=== PATIENT | male | born 1975 ===

== ENCOUNTER 2018-01-12 18:32 | Inpatient (IN) ==
[2018-01-12 20:02] LABS: Basophils % 0.3 % (0.0-0.8); Eosinophils % 0.1 % (0.00-10.9); Hematocrit 43.2 VOL% (42.0-52.0); Hemoglobin 14.9 GM/DL (14.0-18.0); Immature Granulocytes % 0.9 %; Lymphocytes # 1.4 10*3/uL (1.4-4.0); Lymphocytes % 12.3 % (21.2-54.2); Mean Corpuscular HGB Conc 34.5 GM/DL (32-36); Mean Corpuscular Hemoglobin 32 PG (27-34); Mean Corpuscular Volume 91.5 FL (87-102); Mean Platelet Volume 9.5 FL (9.6-12.0); Monocytes # 1.4 10*3/uL (0.11-0.8); Monocytes % 12.6 % (1.7-12.7); Neutrophils # 8.1 10*3/uL (1.4-7.4); Neutrophils % 73.8 % (38.7-73.9); Platelet Count 137 T/CUMM (130-400); Red Blood Count 4.72 MC/CUMM (3.8-5.5); Red Cell Distribution Width 12.4 % (9.3-17.3)
[2018-01-12 20:12] LABS: INR 1.1
[2018-01-12 20:15] LABS: Barbiturates Screen,Urine Negative (Negative); Benzodiazepines Screen,Urine Negative (Negative); Cannabinoid Screen,Urine Negative (Negative); Opiate Screen,Urine Negative (Negative); Phencyclidine Screen,Urine Negative (Negative)
[2018-01-12 20:18] LABS: Apearance,Urine CLEAR (Clear); Bilirubin,Urine Negative (Negative); Blood, Urine Moderate mg/dL (Negative); Glucose,Urine (UA) Negative (Negative); Hyaline Casts,Urine 2 /LPF (0-3); Ketones,Urine Negative (Negative); Mucus,Urine Occasional /LPF (Occasional); Nitrite,Urine Negative (Negative); Protein,Urine 30 MG/DL; RBC,Urine 1 /HPF (0-4); Squamous Epithelial Cell,Urine Occasional /HPF (0-10); Urine Color Yellow (Yellow); Urine Specific Gravity 1.023 (1.001-1.035); Urine Urobilinogen < 2.0 EU/DL (0.2-1.0); WBC,Urine 1 /HPF (0-6)
[2018-01-12 20:27] LABS: Lactic Acid 1.5 MMOL/L (0.4-2.0)
[2018-01-12 21:03] LABS: Calcium 7.3 MG/DL (8.5-10.1)
[2018-01-12 21:04] LABS: Albumin 3.6 G/DL (3.4-5.0); Bilirubin,Total 0.4 MG/DL (0.2-1.0); Total Protein 7.4 G/DL (6.4-8.3)
[2018-01-12 21:05] LABS: Osmolality,Calculated 281.3 MOS/KG (273-304); Potassium 3.9 MMOL/L (3.5-5.1)
[2018-01-13 01:41] LABS: Basophils % 0.3 % (0.0-0.8); Eosinophils % 0.1 % (0.00-10.9); Hematocrit 44.1 VOL% (42.0-52.0); Hemoglobin 14.9 GM/DL (14.0-18.0); Immature Granulocytes % 0.4 %; Immature Granulocytes Absolute 0.04 #; Lymphocytes # 2.2 10*3/uL (1.4-4.0); Lymphocytes % 22.1 % (21.2-54.2); Mean Corpuscular HGB Conc 33.8 GM/DL (32-36); Mean Corpuscular Hemoglobin 31 PG (27-34); Mean Corpuscular Volume 91.9 FL (87-102); Mean Platelet Volume 9.5 FL (9.6-12.0); Monocytes # 1.2 10*3/uL (0.11-0.8); Monocytes % 12.1 % (1.7-12.7); Neutrophils # 6.3 10*3/uL (1.4-7.4); Platelet Count 154 T/CUMM (130-400); Red Cell Distribution Width 12.7 % (9.3-17.3); White Blood Count 9.8 T/CUMM (4-12)
[2018-01-13 02:00] LABS: Alanine Aminotransferase 241 U/L (16-61); Albumin 3.6 G/DL (3.4-5.0); Alkaline Phosphatase 83 U/L (45-117); Aspartate Amino Transferase 161 U/L (0-37); Bilirubin,Total < 0.39 MG/DL (0.2-1.0); Blood Urea Nitrogen 8 MG/DL (7-18); Calcium 7.6 MG/DL (8.5-10.1); Glucose 132 MG/DL (74-106); Potassium 3.8 MMOL/L (3.5-5.1); Sodium 143 MMOL/L (136-145); Total Protein 7.5 G/DL (6.4-8.3)
[2018-01-15 06:23] LABS: Calcium 8.1 MG/DL (8.5-10.1); Osmolality,Calculated 278.7 MOS/KG (273-304); Potassium 4.3 MMOL/L (3.5-5.1)
[2018-01-15 15:52] VITALS: BP 147/78
== END 2018-01-15 15:59 | disposition home or self-care (01) | DRG 563 ==
LOC: EDUNIT# → EDBD → N.ED 18:32 → N.EDINP 18:32 → N.3E 23:02
PROVIDERS: ADMIT Surgery; ATTEND Surgery